=== PATIENT | female | born 1940 | race Caucasian/White ===

== ENCOUNTER → 2019-02-22 | Outpatient (REF) | payer MEDICARE, OTHER | LOC: M LAB REF 14:50 | PROVIDERS: ATTEND Surgery | DX: C44.41 Basal cell carcinoma of skin of scalp and neck (principal) ==

== ENCOUNTER → 2019-05-22 | Day surgery (SDC) | payer MEDICARE, OTHER ==
[~2019-05-22] VITALS: Ht 175.3 cm; Wt 56.7 kg
[~2019-05-22] MED LIST: ACET-897 PO; CARD120T4 PO; CLAR10CA3 PO; LR 1,000 ML IV ONE; SIMV20TA2 PO; SOTA80TA PO; VENTAER; XARE20TA PO; ceFAZolin SOD 1 GM in D5W MINI-BAG PLUS 50 ML IV ONE
[2019-05-22 07:49] VITALS: BP 145/63
== END | disposition home or self-care (01) ==
LOC: M SDC 06:54
PROVIDERS: ATTEND Plastic Surgery Surgery of the Hand
DX: C44.41 Basal cell carcinoma of skin of scalp and neck (principal); Z53.09 Procedure and treatment not carried out because of other contraindication; Z79.01 Long term (current) use of anticoagulants

== ENCOUNTER 2019-05-30 10:05 | Day surgery (SDC) | payer MEDICARE, OTHER ==
[~2019-05-30] VITALS: Ht 175.3 cm; Wt 56.2 kg
[2019-05-30] MEDS ORDERED: BACITRACIN OINT 30GM As Ordered ONE (14:06)
[2019-05-30] MEDS ORDERED: LIDOCAINE 2% W/EPIN INJ 20ML **PRES FREE As Ordered ONE (14:06)
[2019-05-30] MEDS ORDERED: BACITRACIN PWD 50,000 UNITS VIAL As Ordered ONE (14:56)
[2019-05-30] MEDS ORDERED: MIDAZOLAM INJ 2 MG/2 ML VIAL (J2250) As Ordered ONE (15:15)
[2019-05-30] MEDS ORDERED: PROPOFOL 200 MG/20 ML VIAL As Ordered ONE (15:15)
[2019-05-30] MEDS ORDERED: ONDANSETRON 4MG/2ML VIAL (J2405) As Ordered ONE (15:15)
[2019-05-30] MEDS ORDERED: ePHEDrine SULFATE 25 MG/5 ML(5MG/ML) SYRINGE As Ordered ONE (15:15)
[2019-05-30] MEDS ORDERED: ROCURONIUM BROMIDE 50 MG/5 ML VIAL As Ordered ONE (15:15)
[2019-05-30] MEDS ORDERED: METOCLOPRAMIDE INJ 10MG/2ML VIAL (J2765) As Ordered ONE (15:15)
[2019-05-30] MEDS ORDERED: SUGAMMADEX SODIUM 500 MG/5 ML VIAL (BRIDION) As Ordered ONE (15:15)
[2019-05-30] MEDS ORDERED: dexameTHASONE 4 MG/ML 1ML VIAL (J1100) As Ordered ONE (15:15)
[2019-05-30] MEDS ORDERED: LIDOCAINE 2% INJ 100 MG/5 ML SDV (FOR ANES.) As Ordered ONE (15:15)
[2019-05-30] MEDS ORDERED: fentaNYL 100 MCG/2 ML INJECTION (J3010) As Ordered ONE ×2 (15:15→17:00)
[2019-05-30] MEDS ORDERED: ACETAMINOPHEN 1000MG 100ML IV BTL (OFIRMEV) (J0131 PER 10MG) As Ordered ONE (15:45)
[2019-05-30] MEDS ORDERED: LABETALOL HCL 100 MG/20 ML VIAL As Ordered ONE (16:31)
--- NOTE | 2019-05-30 16:40 | POST-OPPD ---
Postoperative Procedure Note Date Of Procedure: May 30, 2019 PREOPERATIVE DIAGNOSIS: Malignant lesion scalp POSTOPERATIVE DIAGNOSIS: same FINDINGS: flesh color scar lesion scalp PROCEDURE: Excision scalp malignant lesion with frozen section and rotational flap closure. SURGEON: Dr Aragon ANESTHESIA: General SPECIMENS: Scalp lesion, suture marking 12 o'clock - anterior scalp ESTIMATED BLOOD LOSS: 2 cc REPLACED: none DRAINS: 1/4 in Enmanuel drain COMPLICATIONS: none POSTOPERATIVE CONDITION: stable dict [id number] KRISTEN ARAGON DO May 30, 2019 16:40
[2019-05-30] MEDS ORDERED: PERCOCET 5MG/325MG TAB As Ordered ONE (16:58)
[2019-05-30] MEDS: fentaNYL 100 MCG/2 ML INJECTION (J3010) IV PRN ×2 (17:00→17:07)
[2019-05-30] MEDS ORDERED: OXYC1TAB23 PO (17:10)
[2019-05-30] MEDS ORDERED: ONDANSETRON 4MG/2ML VIAL (J2405) IV PRN (17:15)
[2019-05-30] MEDS ORDERED: HYDROMORPHONE HCL 0.5 MG/ 0.5 ML SYRINGE (J1170 PER 1) IV PRN (17:15)
[2019-05-30] MEDS ORDERED: PERCOCET 5MG/325MG TAB PO PRN (17:15)
[2019-05-30] MEDS ORDERED: LR 1,000 ML IV SCH (17:15)
[2019-05-30 18:35] VITALS: BP 132/62
--- NOTE | 2019-05-31 18:53 | RO ---
DATE OF PROCEDURE: 05/30/2019 PREPROCEDURE DIAGNOSIS: Malignant lesion scalp. POSTPROCEDURE DIAGNOSIS: Malignant lesion scalp. OPERATIVE PROCEDURE: Excision of scalp malignant lesion with frozen section and rotation flap closure. SURGEON: Alexa Barros DO ANESTHESIA: General. SPECIMENS: Scalp lesion. Suture marking 12-o'clock, which is anterior scalp edge. ESTIMATED BLOOD LOSS: About 2 mL REPLACED: None needed. DRAINS: One 1/4 inch Enmanuel drain. COMPLICATIONS: None. 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 She has positive margins and she is scheduled for formal removal of the scar with remaining basal cell with margins and a closure. All the risks and benefits, and alternatives discussed with the patient and her daughter in detail and she is ready to proceed. DESCRIPTION OF PROCEDURE: On the day of surgery, we marked the area which was completely healed but is a punched out scar which it palpable and visible on the scalp and patient confirmed the location. We marked it out and marked it. It is 2 x 2 cm in diameter. At that point, patient was brought into the operating room, placed in supine position. Preoperative antibiotics were given, sequential stockings placed on the lower calves. General anesthesia was induced. She was prepped and draped in the usual sterile fashion. The area around the scar was infiltrated with 1% lidocaine with epinephrine and then the scar was completely excised using #10 blade. No cautery was used. I did a full thickness excision of the skin. It was marked on an anterior edge. It was marked with 12-o'clock suture and was sent to frozen section. Frozen section came back with clear margins and we designed a rotational flap in order to accommodate this defect closure. The flap was then elevated using #10 blade and electrocautery. Hemostasis was obtained and it was set in place with multiple interrupted sutures of #3-0 Monocryl and #4-0 Monocryl sutures. A 1/4 inch Enmanuel drain was left in place. There was no undue tension to the flap. A Xeroform dressing with a bulky dressing was applied and the head wrapped. The patient was extubated in the operating room without any difficulty and transferred to the recovery room in stable condition. VINCENT
== END 2019-05-30 18:40 | disposition home or self-care (01) ==
LOC: M SDC 10:05
PROVIDERS: ATTEND Plastic Surgery Surgery of the Hand
DX: C44.41 Basal cell carcinoma of skin of scalp and neck (principal); I48.91 Unspecified atrial fibrillation; E78.49 Other hyperlipidemia; J43.9 Emphysema, unspecified; F32.9 Major depressive disorder, single episode, unspecified; F17.210 Nicotine dependence, cigarettes, uncomplicated; R63.6 Underweight; K21.9 Gastro-esophageal reflux disease without esophagitis; Z79.01 Long term (current) use of anticoagulants; Z88.8 Allergy status to other drugs, medicaments and biological substances; Z79.899 Other long term (current) drug therapy
CPT/HCPCS: 14040; 88305; 88331; J0131; J0690; J1100; J2250; J2405; J2765; J3010

== ENCOUNTER → 2023-03-07 | Outpatient (CLI) | payer MEDICARE, OTHER ==
[~2023-03-07] MED LIST changes: -LR 1,000 ML IV ONE; +OXYC1TAB23 PO; -SIMV20TA2 PO; +SIMV20TA22 PO; -ceFAZolin SOD 1 GM in D5W MINI-BAG PLUS 50 ML IV ONE
== END ==
LOC: M PLARAD 07:29
PROVIDERS: ATTEND Internal Medicine Pulmonary Disease
DX: R91.1 Solitary pulmonary nodule (principal)
CPT/HCPCS: 78815; A9552

== ENCOUNTER → 2023-12-02 | Outpatient (REF) | payer MEDICARE, OTHER ==
[2023-12-02 17:34] LABS: TOTAL PROTEIN,RANDOM URINE 6.9 MG/DL (0.0-14.0)
[2023-12-02 17:39] LABS: CREATININE,RANDOM URINE 77.4 MG/DL
[2023-12-02 17:46] LABS: BASO % 0.4 % (0.0-1.0); EOS % 0.4 % (0.0-3.0); HEMATOCRIT 49.6 % (36.0-47.0); HEMOGLOBIN 16.1 g/dl (12.0-15.5); LYMPH # 1.7 10^3/uL (1.5-5.0); LYMPH % 19.5 % (24.0-44.0); MEAN CORPUSCULAR HEMOGLOBIN 29.9 pg (27.0-33.0); MEAN CORPUSCULAR HGB CONC 32.5 g/dl (32.0-36.5); MONO # 0.9 10^3/uL (0.0-0.8); MONO % 9.7 % (2.0-8.0); NEUTROPHILS # 6.2 10^3/uL (1.5-8.5); NEUTROPHILS % 69.8 % (36.0-66.0); PLATELET COUNT, AUTOMATED 302 10^3/uL (150-450); RED BLOOD COUNT 5.39 10^6/uL (4.00-5.40); WHITE BLOOD COUNT 8.9 10^3/uL (4.0-10.0)
[2023-12-02 18:07] LABS: IMMUNOGLOBULIN A 365.5 MG/DL (40-350)
[2023-12-02 18:08] LABS: C REACTIVE PROTEIN QUANTITATIV < 0.40 MG/DL (<1.0)
[2023-12-02 18:09] LABS: ALBUMIN 3.7 G/DL (3.2-5.2); ALKALINE PHOSPHATASE 75 U/L (46-116); ALT/SGPT 18 U/L (7.0-40); AST/SGOT 19 U/L (<34); BILIRUBIN,TOTAL 0.8 MG/DL (0.3-1.2); BLOOD UREA NITROGEN 14 MG/DL (9-23); CALCIUM LEVEL 9.5 MG/DL (8.3-10.6); CARBON DIOXIDE LEVEL 31 MMOL/L (20-31); CHLORIDE LEVEL 103 MMOL/L (98-107); COMPLEMENT C3 136.5 MG/DL (90.0-170.0); COMPLEMENT C4 37.7 MG/DL (12-36); CREATININE FOR GFR 0.57 MG/DL (0.55-1.30); GLOMERULAR FILTRATION RATE > 60.0 (>32); GLUCOSE, FASTING 95 MG/DL (74-106); POTASSIUM SERUM 3.9 MMOL/L (3.5-5.1); SODIUM LEVEL 139 MMOL/L (136-145); TOTAL 25(OH) VITAMIN D 17.8 NG/ML (20.0-100.0); TOTAL PROTEIN 6.7 G/DL (5.7-8.2)
[2023-12-02 18:10] LABS: IMMUNOGLOBULIN G 902 MG/DL (650-1600)
[2023-12-02 18:12] LABS: ERYTHROCYTE SEDIMENTATION RATE 21 mm/hr (0-30)
[2023-12-02 18:48] LABS: HEPATITIS C VIRUS ABY INDEX < 0.02 INDEX (<0.8)
[2023-12-02 18:49] LABS: HEPATITIS B CORE ANTIBODY IGM NEGATIVE (NEGATIVE)
[2023-12-02 21:12] LABS: APPEARANCE, URINE CLEAR (CLEAR); BACTERIA, URINE AUTO NEGATIVE (NEGATIVE); BILIRUBIN, URINE AUTO NEGATIVE (NEGATIVE); BLOOD, URINE BLOOD NEGATIVE (NEGATIVE); COLOR, URINE YELLOW (YELLOW); GLUCOSE, URINE (UA) AUTO NEGATIVE (NEGATIVE); KETONE, URINE AUTO NEGATIVE (NEGATIVE); LEUKOCYTE ESTERASE, URINE AUTO NEGATIVE (NEGATIVE); MUCUS, URINE SMALL (NEGATIVE); NITRITE, URINE AUTO NEGATIVE (NEGATIVE); PROTEIN, URINE AUTO NEGATIVE (NEGATIVE); RBC, URINE AUTO 1 /HPF (0-3); SPECIFIC GRAVITY URINE AUTO 1.016 (1.002-1.035); SQUAMOUS EPITHELIAL CELL UR AU 2 /HPF (0-6); WBC, URINE AUTO 6 /HPF (0-3)
[2023-12-07 16:23] LABS: ANGIOTENSIN 1 CONVERTING ENZYM 66 U/L (14-82); COMPLEMENT TOTAL (CH50) > 60 U/mL (>41); VITAMIN D 1,25 DIHYDROXY 64.7 pg/mL (24.8-81.5)
== END ==
LOC: M SFHCRHEU 12:45
PROVIDERS: ATTEND Internal Medicine Rheumatology
DX: R76.8 Other specified abnormal immunological findings in serum (principal); R61 Generalized hyperhidrosis; M35.3 Polymyalgia rheumatica; H04.123 Dry eye syndrome of bilateral lacrimal glands; Z79.899 Other long term (current) drug therapy; Z01.89 Encounter for other specified special examinations